=== PATIENT | female | born 1980 | race Two or more races ===

== ENCOUNTER 2021-06-30 09:15 | Emergency (ER) | payer OTHER, SELFPAY ==
[2021-06-30 09:26] VITALS: BP 142/107; PULSE 100; RESP 14; TEMP 37.4; O2SAT 100
--- NOTE | 2021-06-30 09:51 | ED.ABDPAIN ---
HPI - Abdominal Pain General Chief Complaint: Abdominal Pain Stated Complaint: Abdominal Pain/Vomiting Time Seen by Provider: 06/30/21 09:38 Source: patient and RN notes reviewed Mode of arrival: ambulatory Limitations: no limitations History of Present Illness HPI narrative: Patient presents today complaining of 3-day history of right lower quadrant pain, nausea and vomiting, chills, headache, body aches, and a 2-day history of cough. Denies fever, shortness of breath. Significant other states that patient has not been able to keep down any food or fluids for the last couple of days. She has been attempting to take NyQuil. Currently rates her abdominal pain 4?510. She is a non-smoker. She has not been vaccinated against COVID-19. MD elicited complaint: abdominal pain Related Data Home Medications Medication Instructions Recorded Confirmed empagliflozin [Jardiance] 10 mg PO DAILY 06/30/21 06/30/21 losartan 50 mg PO DAILY 06/30/21 06/30/21 Allergies Allergy/AdvReac Type Severity Reaction Status Date / Time No Known Allergies Allergy Verified 06/30/21 09:38 Review of Systems Review of Systems: CONSTITUTIONAL: Denies fever, or sweats.+ Body aches, chills EYES: Denies visual changes, redness, or discharge. ENT: Denies rhinorrhea, congestion, sore throat, or otalgia. CARDIOVASCULAR: Denies chest pain, palpitations, or edema. RESPIRATORY: Denies dyspnea.+ Cough GASTROINTESTINAL: Denies diarrhea.+ Abdominal pain, nausea, vomiting GENITOURINARY: Denies dysuria or hematuria. SKIN: Denies rash, itching, or wounds. MUSCULOSKELETAL: Denies back pain, joint pain, or myalgia. NEUROLOGIC: Denies numbness, tingling, or weakness.+ Headache PSYCH: Denies depression or anxiety. [facility] Past Medical History Medical History (Updated 06/30/21 @ 09:56 by Sia Womack, [employer], ) Hypertension Comments At time of signature, I have reviewed and agree with nursing past medical, surgical, social and family history unless otherwise noted. Please see nursing chart for further information. There is no relevant family history pertinent to the presenting complaint Exam Narrative: GENERAL: Ill-appearing, well-nourished, and in no acute distress. HEAD: Normocephalic, atraumatic. EYES: EOMI. No redness or drainage. Conjunctivae normal. ENT: Mucous membranes pink and moist. Nares clear. No rhinorrhea. TMs normal bilaterally. Throat normal. Uvula midline. NECK: Normal AROM. Supple. No lymphadenopathy. CHEST: No respiratory distress. Clear to auscultation. HEART: Regular rate and rhythm. No murmur appreciated. Normal peripheral pulses. ABDOMEN: Soft, nondistended, normal active bowel sounds. + Right lower quadrant abdominal tenderness with guarding and rebound. -Heel jar MUSCULOSKELETAL: No bony tenderness. EXTREMITIES: Normal range of motion. No edema. SKIN: Warm, dry, no rash. Capillary refill normal. Normal skin turgor. NEURO: No focal deficits. Alert and oriented x3. Gait steady. PSYCH: Normal affect. No signs of depression or anxiety. Course Course Emergency Course: Patient had one episode of vomiting during exam. States vomiting exacerbates her abdominal pain. Vital Signs Vital signs: Vital Signs Temperature 99.4 F 06/30/21 09:26 Pulse Rate 100 06/30/21 09:26 Respiratory Rate 14 06/30/21 09:26 Blood Pressure 142/107 H 06/30/21 09:26 Pulse Oximetry 100 06/30/21 09:26 Temperature 99.4 F 06/30/21 09:26 Pulse Rate 100 06/30/21 09:26 Respiratory Rate 14 06/30/21 09:26 Blood Pressure 142/107 H 06/30/21 09:26 Pulse Oximetry 100 06/30/21 09:26 Reviewed Transfer Transfered to: [facility]) Transportation: Other (Private vehicle) Transfer rationale: Right lower quadrant pain, nausea and vomiting, rule out appendicitis Accepting physician: Naveed [facility] - Abdominal Pain Differential Diagnosis Differential diagnosis: Likely abdominal pain, acute appendicitis and gastroenteritis
[2021-06-30] MEDS: ONDANSETRON HCL ODT 4 MG TABLET SUBLINGUAL (09:56)
== END 2021-06-30 10:03 | disposition short-term general hospital (02) ==
PROVIDERS: Emergency Provider Nurse Practitioner
DX: R10.31 Right lower quadrant pain (principal); R11.2 Nausea with vomiting, unspecified; I10 Essential (primary) hypertension
CPT/HCPCS: 99213; A9270; G0463

== ENCOUNTER 2022-03-13 11:29 | Emergency (ER) | payer OTHER, SELFPAY ==
[2022-03-13 11:40] VITALS: BP 134/91; PULSE 73; RESP 16; TEMP 36.6; O2SAT 100
--- NOTE | 2022-03-13 11:54 | ED.EYEPROB ---
HPI - Eye Problem General Chief complaint: Eye Problems Stated complaint: Eye Injury Time Seen by Provider: 03/13/22 11:55 Source: patient and RN notes reviewed Mode of arrival: ambulatory Limitations: no limitations History of Present Illness HPI Narrative: 41-year-old female presents to the [facility] after getting scratched in the eye by her dog last night. Patient reports that she was sleeping on the couch when her dog up on her. Denies any change in vision. States that she did a telemetry doc and was prescribed Cipro drops. Came in here for an actual exam. States the couple of times she is use the drops they have not made it better. No other treatment prior to arrival. No hyphema. Related Data Home Medications Medication Instructions Recorded Confirmed empagliflozin 10 mg tablet 10 mg PO DAILY 06/30/21 03/13/22 (Jardiance) losartan 50 mg tablet 50 mg PO DAILY 06/30/21 03/13/22 ciprofloxacin HCl 0.3 % eye drops See Rx Instructions .Route .COMPLEX 03/13/22 03/13/22 metformin 500 mg tablet 500 mg PO BID 03/13/22 03/13/22 norgestimate 0.18 mg/0.215 mg/0.25 1 tablet PO DAILY 03/13/22 03/13/22 mg-ethinyl estradiol 25 mcg tablet ([id number]) Allergies Allergy/AdvReac Type Severity Reaction Status Date / Time No Known Allergies Allergy Verified 03/13/22 11:58 Review of Systems Review of Systems: All systems reviewed & are unremarkable except as noted in HPI and below Constitutional: Constitutional: Reports no additional constitutional complaints, Denies chills and Denies fever(s) Eyes: Eyes: Reports as per HPI, Denies blind spots, Denies blurry vision, Denies exophthalmos, Denies change in vision, Reports eye pain, Reports photophobia and Reports other (Increased tearing) ENT: Reports system reviewed and no additional complaints, except as documented Cardiovascular: Cardiovascular: Reports no additional cardiovascular complaints Respiratory: Respiratory: Reports no additional respiratory complaints Gastrointestinal: Gastrointestinal: Reports no additional gastrointestinal complaints Musculoskeletal: Musculoskeletal: Reports no additional musculoskeletal complaints Integumentary/Breasts: Skin/Breast: Reports system reviewed and no additional complaints, except as docu Neurologic: Reports system reviewed and no additional complaints, except as documented Psychiatric: Psychiatric: Reports no additional psychiatric complaints Allergic/Immunologic: Allergic/Immunologic: Reports no additional allergic/immunologic complaints [facility] Past Medical History Medical History Hypertension Comments At the time of my signature, I reviewed and agree with the nursing past medical, surgical, social, and family history. There is no relevant family history pertinent to the patient complaint. Exam Const: General: healthy appearing, no acute distress and alert Nutritional Appearance: well nourished Orientation/consciousness: patient oriented x3 Limitations: no limitations HENMT: Head: normal to inspection Ears: external ears normal General nose exam: Normal external nose present Eyes: General: appearance normal, both eyes and all related structures Visual Underwood: normal visual underwood by confrontation Alignment and Position: alignment normal and position normal Periorbital: periorbital findings normal Eyelids: eyelids normal Conjunctivae: conjunctivae normal Sclera: sclerae normal Cornea: corneas abnormal on the left fluorescein used and abrasion at the following clock position (9 ) and fluorescein used Pupils: Equal, round and reactive pupils present EOM: EOMs intact bilaterally Direct Ophthalmoscopy: no photophobia Eyes/upper lids images: 1. abrasion Neck: Neck: normal visual inspection, no lymphadenopathy and no meningeal signs Chest: Chest palpation & inspection: normal inspection of the chest Resp: Effort & Inspection: normal resp
== END 2022-03-13 12:20 | disposition home or self-care (01) ==
PROVIDERS: Emergency Provider Nurse Practitioner; PCP Family Medicine
DX: S05.02XA Injury of conjunctiva and corneal abrasion without foreign body, left eye, initial encounter (principal); W54.8XXA Other contact with dog, initial encounter; I10 Essential (primary) hypertension
CPT/HCPCS: 99213; A9270; G0463

== ENCOUNTER 2022-09-27 09:07 | Emergency (ER) | payer BC, SELFPAY ==
[2022-09-27 09:25] VITALS: BP 110/72; PULSE 82; RESP 18; TEMP 37.1; O2SAT 100
--- NOTE | 2022-09-27 09:51 | ED.GENADULT ---
HPI - General Adult General Chief complaint: Upper Respiratory Infection Stated complaint: cough sore throat sob Source: patient Mode of arrival: ambulatory Limitations: no limitations History of Present Illness HPI narrative: Patient presents for evaluation of sick symptoms for last 5 days. Symptoms include sinus congestion, drainage, sore throat, cough, body aches, hot flashes, chills, nausea and vomiting. Nausea and vomiting have improved. No objective fever. Her and daughter both had strep recently. Pt had COVID a few years ago. She has been taking Tylenol, ibuprofen, Mucinex for symptoms. Related Data Home Medications Medication Instructions Recorded Confirmed empagliflozin 10 mg tablet 10 mg PO DAILY 06/30/21 09/27/22 (Jardiance) losartan 50 mg tablet 50 mg PO DAILY 06/30/21 09/27/22 metformin 500 mg tablet 500 mg PO BID 03/13/22 09/27/22 norgestimate 0.18 mg/0.215 mg/0.25 1 tablet PO DAILY 03/13/22 09/27/22 mg-ethinyl estradiol 25 mcg tablet ([id number]) Allergies Allergy/AdvReac Type Severity Reaction Status Date / Time No Known Allergies Allergy Verified 09/27/22 09:26 Review of Systems Review of Systems: CONSTITUTIONAL: Reports hot flashes and chills. Denies objective fever. EYES: Denies visual changes, redness, or discharge. ENT: Reports sinus congestion, drainage, and sore throat CARDIOVASCULAR: Denies chest pain, palpitations, or edema. RESPIRATORY: Reports cough. Denies SOB GASTROINTESTINAL: Reports recent nausea and vomiting, now resolved. Denies abdominal pain or diarrhea. GENITOURINARY: Denies dysuria or hematuria. SKIN: Denies rash or itching. MUSCULOSKELETAL: Reports generalized body aches NEUROLOGIC: Denies headache, numbness, dizziness, or weakness. PSYCHIATRIC: Denies anxiety or depression. [facility] Past Medical History Medical History (Updated 09/27/22 @ 10:33 by REYNOLD Mcqueen, GERMAINE) Hypertension Surgical History Surgical History No pertinent past surgical history Family History Family History Mother Family history non-contributory Social History Social History Smoking status: Never smoker Substance use: never Living arrangements: with family Gender identity (if verbalized by the patient): Female Sexual Orientation (if Verbalized by the Patient): Straight or Heterosexual Spiritual care concerns: No Exam Narrative: GENERAL: Well-appearing, well-nourished, and in no acute distress. HEAD: Normocephalic, atraumatic. EYES: PERRLA and EOMI. ENT: Nares clear, no rhinorrhea or epistaxis. Mucous membranes moist. Posterior pharyngeal erythema. Bilateral TMs pearly harris nonbulging NECK: Supple. No adenopathy or masses. No carotid bruits or JVD CHEST: Clear to auscultation. No respiratory distress. No wheezes rales or rhonchi HEART: Regular rate and rhythm. No murmur heard. Normal peripheral pulses. ABDOMEN: Soft, nontender, nondistended, normal active bowel sounds. EXTREMITIES: Normal range of motion. No edema. SKIN: Warm, dry, no rash. NEURO: No focal deficits. Alert and oriented x3. PSYCH: Normal mood and affect. Course Course Emergency Course: This is a 42-year-old female who presented for evaluation of sick symptoms after recent strep exposure. Strep, COVID, influenza were negative. Will treat with Augmentin based on exposure in current symptomatology. Follow-up with primary provider. Go to the ER for worsening symptoms. Patient in agreement with plan care. Level of Care: Express Care Visit Vital Signs Vital signs: Vital Signs Temperature 37.1 C 09/27/22 09:25 Pulse Rate 82 09/27/22 09:25 Respiratory Rate 18 09/27/22 09:25 Blood Pressure 110/72 09/27/22 09:25 Pulse Oximetry 100 09/27/22 09:25 Oxygen Delivery Room Air 0
== END 2022-09-27 10:48 | disposition home or self-care (01) ==
PROVIDERS: Emergency Provider Nurse Practitioner; PCP Family Medicine
DX: J02.9 Acute pharyngitis, unspecified (principal); I10 Essential (primary) hypertension; Z20.822 Contact with and (suspected) exposure to COVID-19
CPT/HCPCS: 87081; 87426; 87804; 87880; 99213; C9803; G0463